=== PATIENT | male | born 1945 | race Caucasian/White ===

== ENCOUNTER 2022-09-01 10:36 | Emergency (ER) | payer MEDICARE, OTHER, SELFPAY ==
[2022-09-01] VITALS (11 sets, daily range): BP systolic 119–162; BP diastolic 57–75; PULSE 56–68; RESP 14–23; TEMP 36.6; O2SAT 96–99; BMI 22.8
--- NOTE | 2022-09-01 10:54 | DI.RAD.S_ITS ---
PROCEDURE: XR CHEST 1V INDICATIONS: chest pain TECHNIQUE: One view of the chest was acquired. COMPARISON: None. FINDINGS: Surgical changes and devices: None. Lungs and pleura: Lungs are clear. No pleural effusions or pneumothorax. Mediastinum: Mediastinal contours appear normal. Heart size is normal. Bones and chest wall: No suspicious bony lesions. Overlying soft tissues appear unremarkable. IMPRESSION: No acute cardiopulmonary process. Dictated by: Vincent Vila M.D. on 09/01/2022 at 11:31 Approved by: Vincent Vila M.D. on 09/01/2022 at 11:31
[2022-09-01 11:11] LABS: Add Manual Diff / Slide Review NO; Basophils Absolute Auto 0 /uL (0-100); Basophils Percent Auto 0.8 % (0-2); Eosinophils Absolute Auto 0 /uL (0-450); Eosinophils Percent Auto 0.3 % (2-4); Hematocrit 41.6 % (41-53); Hemoglobin 14.3 g/dL (13.5-17.5); Lymphocytes Absolute Auto 1300 /uL (1100-4500); Lymphocytes Percent Auto 24.9 % (25-40); Mean Corpuscular HGB Conc 34.3 % (30-36); Mean Corpuscular Hemoglobin 30.1 PG (26-34); Mean Corpuscular Volume 87.8 fL (80-100); Monocytes Absolute Auto 500 /uL (0-900); Monocytes Percent Auto 9.2 % (3-14); Neutrophils Absolute Auto 3300 /uL (1500-7000); Neutrophils Percent Auto 64.8 % (50-75); Platelet Count 267 X10^3/uL (150-400); Red Blood Cell Count 4.74 X10^6/uL (4.5-5.9); Red Cell Distribution Width 14.2 % (11.6-14.8); White Blood Cell Count 5.2 X10^3/uL (4.5-11.0)
[2022-09-01 11:18] LABS: PTT Partial Thromboplastin Tim 31 SECONDS (26-36)
[2022-09-01 11:20] LABS: Alanine Aminotransferase 18 IU/L (<50); Albumin 4.2 g/dL (3.5-5.0); Albumin Globulin Ratio 1.5 (1.0-2.8); Alkaline Phosphatase 33 U/L (38-126); Aspartate Aminotransferase 22 IU/L (17-59); BUN Creatinine Ratio 23.7 (6-22); Bilirubin Total 0.8 mg/dL (0.2-1.3); Blood Urea Nitrogen 18 mg/dL (9-20); Calcium 9.1 mg/dL (8.4-10.2); Carbon Dioxide 27 mmol/L (22-32); Chloride 100 mmol/L (98-107); Creatine Kinase 36 U/L (55-170); Estimated Glomerular Filt Rate > 60 mL/min (>60); Globulin 2.8 g/dL (1.7-4.1); Glucose 95 mg/dL (80-110); HEMOLYSIS < 15 (0-50); Lipase 79 U/L (23-300); Magnesium 2.1 mg/dL (1.6-2.3); Potassium 4.3 mmol/L (3.4-5.1); Sodium 135 mmol/L (137-145)
[2022-09-01 11:31] LABS: Troponin I < 0.012 ng/mL (0.01-0.034)
--- NOTE | 2022-09-01 13:07 | ED.ARRPALP ---
HPI - Arrhythmia/Palpitations General Chief Complaint: Arrhythmia/Palpitations Stated Complaint: Irregular heartbeat, fatigue Time Seen by Provider: 09/01/22 13:07 Source: patient Mode of arrival: Ambulatory Limitations: no limitations History of Present Illness HPI narrative: 77-year-old male with history of dyslipidemia takes a half tablet of statin daily, patient presents with complaint of irregular beats for the last week he only notes it when he is at rest. If he is active or physical he does not notice it. It is only when he is awake. He feels a flip flop in his chest it has been intermittent he is unsure how long the episodes last. He denies any lightheadedness or passing out, no chest pain, no shortness of breath, no prolonged episodes of irregular beat more occasional, no diaphoresis, no nausea or vomiting, no diarrhea constipation, no urinary symptoms or swelling of extremities. States only medication is daily statin. No prior surgeries. No tobacco, no alcohol, no illicit. His father at age 76 of cardiac issues. No known prior cardiac issues or arrhythmias for patient. He sees Dr. Shirley as his primary care. He had tried to reach the office today they told him that his physician is on vacation and was directed here. Related Data Allergies Allergy/AdvReac Type Severity Reaction Status Date / Time No Known Drug Allergies Allergy Verified 09/01/22 10:51 Review of Systems Review of Systems ROS Unobtainable: All systems reviewed & are unremarkable except as noted in HPI and below Patient History Social History Smoking Status: Never smoker Smoking Status: Never smoker alcohol intake frequency: holidays/special occasions only Substance Use Type: does not use Exam Narrative Exam Narrative: GENERAL: Alert and oriented x three, male in mild distress. HEENT: Head normocephalic, atraumatic, EOMI, pupils reactive, face symmetric, moist mucous membranes NECK: Supple, full range of motion CARDIOVASCULAR: Regular rate and rhythm without murmurs, rubs or gallops. No JVD. No swelling bilateral lower extremities. RESPIRATORY: Breath sounds equal bilaterally, no wheezes rales or rhonchi. ABDOMEN: Soft, nontender. Normoactive bowel sounds all 4 quadrants. No guarding or rebound, rigidity, no mass : No CVA tenderness EXTREMITIES: Normal range of motion, no clubbing or edema. Neurovascularly intact NEUROLOGICAL: Cranial nerves II through XII grossly intact. Moving all extremities SKIN: Warm, dry, no petechiae, no rashes or lesions. Initial Vital Signs Initial Vital Signs: Vital Signs Temperature 97.9 F 09/01/22 10:48 Pulse Rate 68 09/01/22 10:48 Respiratory Rate 14 09/01/22 10:48 Blood Pressure 149/75 H 09/01/22 10:48 Pulse Oximetry 99 09/01/22 10:48 Oxygen Delivery Method Room Air 09/01/22 10:48 Course Orders Ordered: ED Orders 09/01/22 10:54 XR chest 1V Stat 09/01/22 11:00 EKG-12 Lead Stat 09/01/22 11:07 Complete Blood Count AUTO DIFF Stat Comprehensive Metabolic Panel Stat Lipase Stat Magnesium Stat PTT Partial Thromboplastin [place] Stat Prothrombin Time INR Stat Troponin & CK Cardiac Panel Stat Vital Signs Vital signs: Vital Signs - 8 hr 09/01/22 11:30 09/01/22 11:31 09/01/22 11:31 Pulse Rate 61 61 Respiratory Rate 17 21 Blood Pressure 119/58 L Pulse Oximetry 96 96 Oxygen Delivery Method 09/01/22 12:00 09/01/22 12:00 09/01/22 12:30 Pulse Rate 58 L Respiratory Rate 17 Blood Pressure 121/57 L 124/58 L Pulse Oximetry 97 Oxygen Delivery Method 09/01/22 12:30 09/01/22 13:00 09/01/22 13:01 Pulse Rate 56 L 57 L Respiratory Rate 18 23 Blood Pressure 120/58 L Pulse Oximetry 96 97 Oxygen Delivery Method 09/01/22 13:01 09/01/22 13:30 09/01/22 13:30 Pulse Rate 56 L 57 L Respiratory Rate 22 23 Blood Pressure 137/60 Pulse Oximetry 98 98 Oxygen Delivery Method Room Air 09/01/22 14:01 09/01/22 14:01 Pulse Rate 57 L Respiratory Rate 20 Blood Pressure 150/64 H Pulse Oximetry 98 Oxygen Delivery Method MDM - Arrhythmia/Palpitations Lab Data 09/01/22 11:07 09/01/22 11:07 Labs: Lab Results 09/01/22 09/01/22 09/01/22 Range/Units 11:07 11:07 11:07 WBC 5.2 (4.5-11.0) X10^3/uL RBC 4.74 (4.5-5.9) X10^6/uL Hgb 14.3 (13.5-17.5) g/dL Hct 41.6 (41-53) % MCV 87.8 (80-100) fL MCH 30.1 (26-34) PG MCHC 34.3 (30-36) % RDW 14.2 (11.6-14.8) % Plt Count 267 (150-400) X10^3/uL Neut % (Auto) 64.8 (50-75) % Lymph % (Auto) 24.9 L (25-40) % [place] % (Auto) 9.2 (3-14) % Eos % (Auto) 0.3 L (2-4) % Baso % (Auto) 0.8 (0-2) % Neut # (Auto) 3300 (2680-4176) /uL Lymph # (Auto) 1300 (1256-0097) /uL [place] # (Auto) 500 (0-900) /uL Eos # (Auto) 0 (0-450) /uL Baso # (Auto) 0 (0-100) /uL PT 12.0 (10.1-12.7) SECONDS INR 1.0 (0.9-1.3) APTT 31 (26-36) SECONDS Sodium 135 L (137-145) mmol/L Potassium 4.3 (3.4-5.1) mmol/L Chloride 100 (98-107) mmol/L Carbon Dioxide 27 (22-32) mmol/L BUN 18 (9-20) mg/dL Creatinine 0.76 (0.66-1.25) mg/dL Estimated GFR > 60 (>60) mL/min BUN/Creatinine Ratio 23.7 H (6-22) Glucose 95 (80-110) mg/dL Calcium 9.1 (8.4-10.2) mg/dL Magnesium 2.1 (1.6-2.3) mg/dL Total Bilirubin 0.8 (0.2-1.3) mg/dL AST 22 (17-59) IU/L ALT 18 (<50) IU/L Alkaline Phosphatase 33 L (38-126) U/L Total Creatine Kinase 36 L (55-170) U/L Troponin I < 0.012 (0.01-0.034) ng/mL Total Protein 7.0 (6.3-8.2) g/dL Albumin 4.2 (3.5-5.0) g/dL Globulin 2.8 (1.7-4.1) g/dL Albumin/Globulin Ratio 1.5 (1.0-2.8) Lipase 79 (23-300) U/L Imaging Data Chest x-ray: Radiologist's Impresson: Carlos Gill??77??M??1945 ? Allergy/Adv: No Known Drug Allergies (More??) Close Chest X-Ray (Signed) Vincent Vila - 09/01/22 [address]?[place] [address] XRay Report Signed Patient: Carlos Gill MR#: [id number] : 1945 Acct:[id number] Age/Sex: 77 / M Date of Service: 09/01/22 Loc: ED Accession Number: [id number] ?? Procedure: XR chest 1V Ordering Provider: Clarice Mixon D.O. PROCEDURE:? XR CHEST 1V ? INDICATIONS:? chest pain ? TECHNIQUE:? One view of the chest was acquired.? ? COMPARISON:? None. ? FINDINGS:? ? Surgical changes and devices:? None.? ? Lungs and pleura:? Lungs are clear.? No pleural effusions or pneumothorax.? ? Mediastinum:? Mediastinal contours appear normal.? Heart size is normal.? ? Bones and chest wall:? No suspicious bony lesions.? Overlying soft tissues appear unremarkable.? ? IMPRESSION:? No acute cardiopulmonary process. ? ? ? Dictated by: Vincent Vila M.D. on 09/01/2022 at 11:31 ? ? Approved by: Vincent Vila M.D. on 09/01/2022 at 11:3 ECG Data Attestation: I personally reviewed and interpreted this ECG as follows: Prior ECG tracings: not available for review Interpretation: Sinus rhythm rate of 65 GA 160 QRS of 94 and QTC of 388. No acute ST elevation depression noted. No priors. MDM Narrative Medical decision making narrative: This is a 77-year-old male with intermittent palpitations appears to have some P BCs on his telemetry, not captured on EKG and not having a prolonged arrhythmias appreciated here in the department. Labs including CBC, coags CMP show alk-phos of 330 and a CK 360, negative troponin chest x-ray is negative no other acute changes. No chest pain shortness of breath or other anginal equivalents. Patient felt appropriate for discharge with follow up with primary care for Holter monitor for any other arrhythmias but non capture today. Discussed return precautions with patient and family at bedside. Discharge Plan Departure Patient Disposition: Home Clinical Impression: Palpitations Instructions: DI for Palpitations Activity Restrictions/Additional Instructions: Your telemetry shows occasional extra beats but no other cardiac arrhythmias, I would recommend follow up with your primary care for a Holter monitor or ZIO patch. Your labs and workup otherwise are reassuring. Please return for new or persistent arrhythmias, new chest pain, shortness of breath, lightheadedness or passing out, getting sweaty, increasing swelling in her extremities or other new or concerning changes. Referrals: Mj Shirley MD [Primary Care Provider] - Stand Alone Forms: Patient Portal/API
== END 2022-09-01 14:14 | disposition home or self-care (01) ==
PROVIDERS: Emergency Provider Emergency Medicine; Family Provider Family Medicine; PCP Family Medicine
DX: R00.2 Palpitations (principal); R07.9 Chest pain, unspecified
CPT/HCPCS: 36415; 71045; 80053; 82550; 83690; 83735; 84484; 85025; 85610; 85730; 93005; 99284

== ENCOUNTER 2022-09-07 14:34 | Emergency (ER) | payer MEDICARE, OTHER, SELFPAY ==
[2022-09-07] VITALS (8 sets, daily range): BP systolic 109–160; BP diastolic 60–73; PULSE 59–66; RESP 10–20; TEMP 36.8; O2SAT 93–98; BMI 23.6
--- NOTE | 2022-09-07 14:54 | DI.RAD.S_ITS ---
PROCEDURE: XR CHEST 1V INDICATIONS: chest pain TECHNIQUE: One view of the chest was acquired. COMPARISON: [facility], CR, XR CHEST 1V, 09/01/2022, 11:02. FINDINGS: Surgical changes and devices: None. Lungs and pleura: Lungs are clear. No pleural effusions or pneumothorax. Mediastinum: Mediastinal contours appear normal. Heart size is normal. Bones and chest wall: No suspicious bony lesions. Overlying soft tissues appear unremarkable. IMPRESSION: No acute cardiopulmonary process. Dictated by: Vincent Vila M.D. on 09/07/2022 at 15:18 Approved by: Vincent Vila M.D. on 09/07/2022 at 15:18
[2022-09-07 15:05] LABS: Add Manual Diff / Slide Review NO; Basophils Absolute Auto 0 /uL (0-100); Basophils Percent Auto 0.5 % (0-2); Eosinophils Absolute Auto 0 /uL (0-450); Eosinophils Percent Auto 0.3 % (2-4); Hematocrit 42.2 % (41-53); Hemoglobin 14.4 g/dL (13.5-17.5); Lymphocytes Absolute Auto 1500 /uL (1100-4500); Lymphocytes Percent Auto 22.9 % (25-40); Mean Corpuscular HGB Conc 34.2 % (30-36); Mean Corpuscular Volume 87.9 fL (80-100); Monocytes Absolute Auto 600 /uL (0-900); Monocytes Percent Auto 9.3 % (3-14); Neutrophils Absolute Auto 4300 /uL (1500-7000); Platelet Count 259 X10^3/uL (150-400); Red Cell Distribution Width 13.6 % (11.6-14.8); White Blood Cell Count 6.4 X10^3/uL (4.5-11.0)
[2022-09-07 15:08] LABS: Prothrombin Time 11.9 SECONDS (10.1-12.7)
[2022-09-07 15:10] LABS: PTT Partial Thromboplastin Tim 32 SECONDS (26-36)
[2022-09-07 15:12] LABS: Alanine Aminotransferase 16 IU/L (<50); Albumin 4.1 g/dL (3.5-5.0); Albumin Globulin Ratio 1.5 (1.0-2.8); Alkaline Phosphatase 37 U/L (38-126); Aspartate Aminotransferase 23 IU/L (17-59); BUN Creatinine Ratio 22.9 (6-22); Bilirubin Total 0.9 mg/dL (0.2-1.3); Blood Urea Nitrogen 16 mg/dL (9-20); Calcium 8.6 mg/dL (8.4-10.2); Carbon Dioxide 23 mmol/L (22-32); Chloride 100 mmol/L (98-107); Creatine Kinase 41 U/L (55-170); Estimated Glomerular Filt Rate > 60 mL/min (>60); Globulin 2.7 g/dL (1.7-4.1); Glucose 95 mg/dL (80-110); HEMOLYSIS < 15 (0-50); Lipase 90 U/L (23-300); Magnesium 2.1 mg/dL (1.6-2.3); Potassium 4.2 mmol/L (3.4-5.1); Sodium 129 mmol/L (137-145); Total Protein 6.8 g/dL (6.3-8.2)
[2022-09-07 15:24] LABS: Troponin I < 0.012 ng/mL (0.01-0.034)
--- NOTE | 2022-09-07 18:30 | ED_ITS ---
HPI - Arrhythmia/Palpitations General Chief Complaint: Arrhythmia/Palpitations Stated Complaint: Heart palpitation Time Seen by Provider: 09/07/22 18:01 Source: patient, family and EMS Mode of arrival: EMS History of Present Illness HPI narrative: Patient is a 77-year-old male who was here several days ago for same symptoms that he had today. He describes palpitations. He states when they occur it lasts for a minute or less. He sometimes gets lightheaded. No chest pain. His symptoms happened today. He was seen here in the emergency department several days ago for similar symptoms. He has seen a provider from his primary doctor's office who referred him to see Cardiology. He is a scheduled appointment with Cardiology next Sunday and an appointment with his primary doctor on Sunday. At the time of my exam he was not having symptoms. Related Data Allergies Allergy/AdvReac Type Severity Reaction Status Date / Time No Known Drug Allergies Allergy Verified 09/01/22 10:51 Review of Systems Constitutional Constitutional: Reports system reviewed and no additional complaints, except as documented Respiratory Respiratory: Reports system reviewed and no additional complaints, except as documented Gastrointestinal Gastrointestinal: Reports system reviewed and no additional complaints, except as documented Integumentary/Breasts Skin/Breast: Reports system reviewed and no additional complaints, except as documented Neurologic Neurologic: Reports system reviewed and no additional complaints, except as documented Hematologic/Lymphatic On Anticoagulants: No Patient History Social History Smoking Status: Never smoker Smoking Status: Never smoker alcohol intake frequency: holidays/special occasions only Substance Use Type: does not use Exam Initial Vital Signs Initial Vital Signs: Vital Signs Temperature 98.3 F 09/07/22 14:44 Pulse Rate 64 09/07/22 14:44 Respiratory Rate 20 09/07/22 14:44 Blood Pressure 160/73 H 09/07/22 14:44 Pulse Oximetry 96 09/07/22 14:44 Oxygen Delivery Method Room Air 09/07/22 14:44 HENAZ Head: normal to inspection and normocephalic Resp Effort & Inspection: normal respiratory effort Auscultation: clear to auscultation bilaterally Cardio Rate: regular rate Rhythm: regular rhythm Skin General: no rashes or lesions noted Neuro General: patient alert, patient awake and moves all extremities Extrem General: No edema Course Orders Ordered: ED Orders 09/07/22 14:54 XR chest 1V Stat Complete Blood Count AUTO DIFF Stat Comprehensive Metabolic Panel Stat Lipase Stat Magnesium Stat PTT Partial Thromboplastin [place] Stat Prothrombin Time INR Stat Troponin & CK Cardiac Panel Stat Vital Signs Vital signs: Vital Signs - 8 hr 09/07/22 18:00 09/07/22 18:00 09/07/22 19:11 Pulse Rate 60 64 Respiratory Rate 13 18 Blood Pressure 109/62 124/60 Pulse Oximetry 94 98 Oxygen Delivery Method Room Air MDM - Arrhythmia/Palpitations Lab Data Attestation: I reviewed the patient's lab results. 09/07/22 14:54 09/07/22 14:54 Labs: Lab Results 09/07/22 09/07/22 09/07/22 Range/Units 14:54 14:54 14:54 WBC 6.4 (4.5-11.0) X10^3/uL RBC 4.80 (4.5-5.9) X10^6/uL Hgb 14.4 (13.5-17.5) g/dL Hct 42.2 (41-53) % MCV 87.9 (80-100) fL MCH 30.0 (26-34) PG MCHC 34.2 (30-36) % RDW 13.6 (11.6-14.8) % Plt Count 259 (150-400) X10^3/uL Neut % (Auto) 67.0 (50-75) % Lymph % (Auto) 22.9 L (25-40) % [place] % (Auto) 9.3 (3-14) % Eos % (Auto) 0.3 L (2-4) % Baso % (Auto) 0.5 (0-2) % Neut # (Auto) 4300 (4200-4235) /uL Lymph # (Auto) 1500 (8950-0098) /uL [place] # (Auto) 600 (0-900) /uL Eos # (Auto) 0 (0-450) /uL Baso # (Auto) 0 (0-100) /uL PT 11.9 (10.1-12.7) SECONDS INR 1.0 (0.9-1.3) APTT 32 (26-36) SECONDS Sodium 129 L (137-145) mmol/L Potassium 4.2 (3.4-5.1) mmol/L Chloride 100 (98-107) mmol/L Carbon Dioxide 23 (22-32) mmol/L BUN 16 (9-20) mg/dL Creatinine 0.70 (0.66-1.25) mg/dL Estimated GFR > 60 (>60) mL/min BUN/Creatinine Ratio 22.9 H (6-22) Glucose 95 (80-110) mg/dL Calcium 8.6 (8.4-10.2) mg/dL Magnesium 2.1 (1.6-2.3) mg/dL Total Bilirubin 0.9 (0.2-1.3) mg/dL AST 23 (17-59) IU/L ALT 16 (<50) IU/L Alkaline Phosphatase 37 L (38-126) U/L Total Creatine Kinase 41 L (55-170) U/L Troponin I < 0.012 (0.01-0.034) ng/mL Total Protein 6.8 (6.3-8.2) g/dL Albumin 4.1 (3.5-5.0) g/dL Globulin 2.7 (1.7-4.1) g/dL Albumin/Globulin Ratio 1.5 (1.0-2.8) Lipase 90 (23-300) U/L Imaging Data Chest x-ray: Radiologist's Impresson: PROCEDURE:? XR CHEST 1V ? INDICATIONS:? chest pain ? TECHNIQUE:? One view of the chest was acquired.? ? COMPARISON:? [facility], CR, XR CHEST 1V, 09/01/2022, 11:02. ? FINDINGS:? ? Surgical changes and devices:? None.? ? Lungs and pleura:? Lungs are clear.? No pleural effusions or pneumothorax.? ? Mediastinum:? Mediastinal contours appear normal.? Heart size is normal.? ? Bones and chest wall:? No suspicious bony lesions.? Overlying soft tissues appear unremarkable.? ? IMPRESSION:? No acute cardiopulmonary process. ECG Data Attestation: I personally reviewed and interpreted this ECG as follows: Interpretation: Sinus rhythm Ventricular rate is 61 Normal axis Normal QRS Normal QTC No ST T wave changes MDM Narrative Medical decision making narrative: At the time of my exam patient was not having symptoms. He did have an occasional PVC on the monitor but this seemed to be asymptomatic to him. His EKGs unremarkable. Labs unremarkable. Chest x-ray is unremarkable. He has an appointment with his primary doctor next Sunday and also an appointment with Cardiology next Sunday. I would a long discussion with him and his regarding the symptoms. They understand that he most likely is going to need a Holter monitor for further evaluation to distinguish what is the underlying cause of the palpitations. Discharge patient home with return precautions. He expressed understanding and agreement. Discharge Plan Departure Patient Disposition: Home Clinical Impression: Palpitations Instructions: Arrhythmias Activity Restrictions/Additional Instructions: It is important that you continue to take all of your medications as directed and keep your scheduled follow-up appointments with your primary doctor on Sunday and electrolysis engineer on Sunday. Return to the emergency department for new symptoms. Referrals: Mj Shirley MD [Primary Care Provider] - Stand Alone Forms: Patient Portal/API
== END 2022-09-07 19:12 | disposition home or self-care (01) ==
PROVIDERS: Emergency Medicine; Emergency Provider Emergency Medicine; Family Provider Family Medicine; PCP Family Medicine
DX: R00.2 Palpitations (principal); R07.9 Chest pain, unspecified
CPT/HCPCS: 71045; 80053; 82550; 83690; 83735; 84484; 85025; 85610; 85730; 93005; 99283; 99284

== ENCOUNTER → 2024-03-24 15:03 | Outpatient (CLI) | payer MEDICARE, OTHER, SELFPAY ==
--- NOTE | 2024-03-24 15:05 | DI.MRI.S_ITS ---
PROCEDURE: MR PELVIC PROSTATE PROTOCOL INDICATIONS: Elevated PSA/asymmetric prostate TECHNIQUE: Coronal HASTE, axial T1 FSE with fat saturation, 3-plane nonbreath-hold T2 FSE. After the administration of contrast, dynamic axial, delayed axial and coronal VIBE or 2-D FLASH with fat saturation through the pelvis. Diffusion weighted imaging and ADC was performed. COMPARISON: None. FINDINGS: Image quality: Diffusion weighted and dynamic contrast enhanced images are diagnostic. Prostate: Gland size is 5.4 x 3.3 x 4.4 cm; ellipsoid gland volume is 40.8 mL. There is preservation of the peripheral zone with several hypointense striations throughout. Lesion 1: Location: Left paracentral/anterior peripheral zone at a mid gland level, on axial series five, image 11 and coronal series six, image 13. Size: 1.1 cm. T2W signal: Hypointense. DWI signal: Markedly hyperintense. ADC signal: Moderately hypointense Enhancement: Yes Extracapsular extension: No PI-RADS score: Four Genitourinary system: Bladder wall thickness is normal. Distal ureters are non distended. Bowel and peritoneum: Extensive sigmoid diverticulosis. Other bowel loops appear normal. No free pelvic fluid. Nodes and vessels: Normal caliber vasculature. No suspicious pelvic lymph nodes. Soft tissues: No inguinal hernias. Bones: Marrow demonstrates normal overall signal, without lesions to suggest metastases. IMPRESSION: PI-RADS four lesion measuring 1.1 cm in the left mid gland peripheral zone. Targeted biopsy may be useful. No evidence of adenopathy or extracapsular extension. No suspicious bone lesion. Dictated by: Latoya Ramires M.D. on 03/24/2024 at 17:44 Approved by: Latoya Ramires M.D. on 03/24/2024 at 17:57
== END ==
PROVIDERS: Family Provider Family Medicine; PCP Family Medicine; Referring Provider Urology; Visit Provider Urology
DX: N42.9 Disorder of prostate, unspecified (principal); R97.20 Elevated prostate specific antigen [PSA]; K57.30 Diverticulosis of large intestine without perforation or abscess without bleeding
CPT/HCPCS: 72197; A9579

== ENCOUNTER → 2024-05-07 10:34 | Outpatient (CLI) | payer MEDICARE, OTHER, SELFPAY ==
--- NOTE | 2024-05-07 10:35 | DI.CT.S_ITS ---
PROCEDURE: CT ABDOMEN PELVIS W CON INDICATIONS: New diagnosis prostate cancer TECHNIQUE: After the administration of intravenous contrast, axial sections acquired from the lung bases to the pubic symphysis. Coronal and sagittal reformats were performed. For radiation dose reduction, the following was used: automated exposure control, adjustment of mA and/or kV according to patient size. COMPARISON: [facility], , MR PELVIC PROSTATE PROTOCOL, 03/24/2024, 15:25. FINDINGS: Image quality: Diagnostic. Lower Chest: No significant findings. ABDOMEN: Liver: Hepatic cysts. Additional subcentimeter hypoattenuating lesions, too small to characterize by CT. Coarse calcification at the liver dome, nonspecific. Gallbladder: No radiopaque gallstones or wall thickening. Biliary ducts: No biliary dilation. Pancreas: A few T2 hyperintense cystic lesions, largest measuring 1.7 cm in the inferior pancreatic head/uncinate process . Spleen: Size is within normal limits. Adrenal Glands: No adrenal nodules. Kidneys and Ureters: No hydronephrosis. No solid mass. No complex renal cystic lesion which requires follow up. Stomach and Bowel: Normal colonic caliber, without significant wall thickening. Colonic diverticulosis without evidence of diverticulitis. Peritoneum: No abnormal intraperitoneal fluid. No free air. Ventral Wall: No significant ventral hernia. Abdominal Nodes: No retroperitoneal or mesenteric adenopathy by size criteria. Vessels: Aorta and inferior vena cava are normal in size. PELVIS: Pelvic Organs: Prostate is enlarged. Asymmetric dilation of the left seminal vesicle. Bladder: No bladder wall thickening, accounting for underdistention. Pelvic Nodes: No enlarged lymph nodes. Miscellaneous: Small left inguinal hernia containing fat. Bones: No aggressive osseous abnormality. Degenerative disc disease of the lumbar spine. IMPRESSION: Prostate is enlarged, with asymmetric distension of the left seminal vesicle. A portion of the mass may be obstructing this region. Otherwise, no measurable disease. Colonic diverticulosis without evidence of diverticulitis. Dictated by: Vincent Vila M.D. on 05/07/2024 at 13:46 Approved by: Vincent Vila M.D. on 05/07/2024 at 13:52
--- NOTE | 2024-05-07 10:35 | DI.NM.S_ITS ---
PROCEDURE: NM BONE SCAN WHOLE BODY RADIOPHARMACEUTICAL: 21 mCi Tc-99m MDP IV. INDICATIONS: New diagnosis prostate cancer TECHNIQUE: Delayed whole-body scintigrams were obtained approximately 3-4 hours after intravenous injection of radiotracer. Anterior and posterior views were acquired from vertex to feet. Additional left and right oblique views of the pelvis were obtained. COMPARISON: [facility], CT, CT ABDOMEN PELVIS W CON, 05/07/2024, 11:16. FINDINGS: Degenerative uptake in the 1st CMC joints, shoulders, medial compartment of the right knee, lower spine and left cervical facets. No suspicious radiotracer uptake. IMPRESSION: No suspicious radiotracer uptake. Dictated by: Vincent Vila M.D. on 05/07/2024 at 15:23 Approved by: Vincent Vila M.D. on 05/07/2024 at 15:25
[2024-05-07 11:00] LABS: Estimated Glomerular Filt Rate > 60 mL/min (>60)
== END ==
PROVIDERS: Family Provider Family Medicine; PCP Family Medicine; Referring Provider Urology; Visit Provider Urology
DX: C61 Malignant neoplasm of prostate (principal); K57.30 Diverticulosis of large intestine without perforation or abscess without bleeding
CPT/HCPCS: 36415; 74177; 78306; 82565; A9503; Q9967

== ENCOUNTER → 2024-11-19 11:01 | Outpatient (CLI) | payer MEDICARE, OTHER, SELFPAY ==
[2024-11-19 13:50] LABS: Prostate Specific Antigen 2.96 ng/mL (0.10-4.00)
== END ==
PROVIDERS: Family Provider Family Medicine; PCP Family Medicine; Referring Provider Urology; Visit Provider Urology
DX: C61 Malignant neoplasm of prostate (principal)
CPT/HCPCS: 36415; 84153

== ENCOUNTER → 2025-02-16 10:53 | Outpatient (CLI) | payer MEDICARE, OTHER, SELFPAY ==
[2025-02-16 12:30] LABS: Prostate Specific Antigen 1.14 ng/mL (0.10-4.00)
== END ==
PROVIDERS: Family Provider Family Medicine; PCP Family Medicine; Referring Provider Family Medicine; Visit Provider Urology
DX: C61 Malignant neoplasm of prostate (principal)
CPT/HCPCS: 36415; 84153